=== PATIENT | male | born 1990 | race Caucasian/White ===

== ENCOUNTER 2024-02-23 05:06 | Emergency (ER) | payer OTHER, MEDICAID ==
[~2024-02-23] VITALS: Ht 182.9 cm; Wt 72.4 kg
[~2024-02-23 05:06] MED LIST: ANAPROX DS550 MG PO; BUSPIRONE HCL15 MG PO; CIPRO500 MG PO; GABAPENTIN100 MG PO; MIRTAZAPINE30 MG PO; ZOFRAN ODT8 MG PO
--- OUTSIDE RECORDS SUMMARY | 2024-02-23 05:09 | XMS ---
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 E.DMoshe VISIT COUNT (12 MO.) [address] TOTAL 6 NOTE: Visits indicate total known visits. ED/UCC VISIT TRACKING (12 MO.) 02/23/2024 05:[address] [facility] [address] TYPE: Emergency COMPLAINT: - RT ARM INJURY [facility] DIAGNOSES: - Medication Refill - WITHDRAWAL - WITHDRAWL 02/01/2024 23[facility] DIAGNOSES: - Medication Refill 01/31/2024 10[facility] DIAGNOSES: - "IS REALLY SICK" - Medication Refill 01/28/2024 [facility] DIAGNOSES: - Encounter for issue of repeat prescription - Withdrawal - WITHDRAWL 05/14/2023 21:26 [facility] TYPE: Emergency COMPLAINT: - MEDICAL SCREENING - Person with feared health complaint in whom no diagnosis is made DIAGNOSES: 1. Person with feared health complaint in whom no diagnosis is made INPATIENT VISIT TRACKING (12 MO.) No inpatient visits to display in this time frame [email or web address]
[2024-02-23] MEDS ORDERED: KETOROLAC TROMETHAMINE 30 MG/ML VIAL IV ONE (05:15)
[2024-02-23] MEDS ORDERED: METHADONE HCL 10 MG TAB PO ONE (05:15)
[2024-02-23] MEDS ORDERED: IBUPROFEN 800 MG TAB PO ONE (05:30)
[2024-02-23] MEDS ORDERED: METHADONE HCL10 MG PO (05:40)
[2024-02-23] MEDS ORDERED: LIDOCAINE HCL 2% 5 ML SDV ONE (06:18)
[2024-02-23] MEDS ORDERED: DEXAMETHASONE SOD PHOS 4 MG/ML VIAL ONE (06:18)
[2024-02-23] MEDS ORDERED: Ropivacaine HCl 0.5% 30 ML VIAL ONE (06:18)
[2024-02-23] MEDS ORDERED: IBU800 MG PO (07:21)
[2024-02-23 08:35] VITALS: BP 133/89
== END 2024-02-23 08:37 | disposition home or self-care (01) ==
LOC: ED 05:06
DX: S52.591A Other fractures of lower end of right radius, initial encounter for closed fracture (principal); S52.611A Displaced fracture of right ulna styloid process, initial encounter for closed fracture; F17.200 Nicotine dependence, unspecified, uncomplicated; Z88.8 Allergy status to other drugs, medicaments and biological substances; Z79.899 Other long term (current) drug therapy; W01.0XXA Fall on same level from slipping, tripping and stumbling without subsequent striking against object, initial encounter
CPT/HCPCS: 29125; 64417; 71045; 73030; 73090; 73110; 76942; 80053; 85025; 99283-25; A9270; J1100; J2003; J2795

== ENCOUNTER 2024-02-24 09:41 | Emergency (ER) | payer OTHER, MEDICAID ==
[~2024-02-24] VITALS: Ht 182.9 cm; Wt 70.0 kg
[~2024-02-24 09:41] MED LIST changes: +IBU800 MG PO; +METHADONE HCL10 MG PO
--- OUTSIDE RECORDS SUMMARY | 2024-02-24 09:48 | XMS ---
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 EWinifred VISIT COUNT (12 MO.) 4 [facility] [address] TOTAL 7 NOTE: Visits indicate total known visits. ED/UCC VISIT TRACKING (12 MO.) 02/24/2024 09:42 [facility] Macias TYPE: Emergency COMPLAINT: - RT ARM PAIN 02/23/2024 05:07 ANDRIY Macias TYPE: Emergency COMPLAINT: - RT ARM INJURY 02/02/2024 14:52 [facility] Jessica MORENO TYPE: Emergency DIAGNOSES: - Medication Refill - WITHDRAWAL - WITHDRAWL 02/01/2024 23:24 [facility] Ashli MORENO TYPE: Emergency DIAGNOSES: - Medication Refill 01/31/2024 10:46 [facility] Ashli MORENO TYPE: Emergency DIAGNOSES: - "IS REALLY SICK" - Medication Refill 01/28/2024 14:00 [facility] Ashli MORENO TYPE: Emergency DIAGNOSES: - Encounter for issue of repeat prescription - Withdrawal - WITHDRAWL 05/14/2023 21:26 [facility] TYPE: Emergency COMPLAINT: - MEDICAL SCREENING - Person with feared health complaint in whom no diagnosis is made DIAGNOSES: 1. Person with feared health complaint in whom no diagnosis is made INPATIENT VISIT TRACKING (12 MO.) No inpatient visits to display in this time frame [id number]
[2024-02-24] MEDS ORDERED: OXYCODONE/APAP 5/325 TAB PO ONE (10:45)
[2024-02-24] MEDS ORDERED: IBUPROFEN 600 MG TAB PO ONE (10:45)
[2024-02-24 11:47] VITALS: BP 123/73
== END 2024-02-24 11:47 | disposition home or self-care (01) ==
LOC: ED 09:41
DX: S62.101A Fracture of unspecified carpal bone, right wrist, initial encounter for closed fracture (principal); W18.30XA Fall on same level, unspecified, initial encounter; F17.200 Nicotine dependence, unspecified, uncomplicated; Z88.5 Allergy status to narcotic agent; Z79.899 Other long term (current) drug therapy
CPT/HCPCS: 99283; A9270

== ENCOUNTER 2024-03-07 08:37 | Emergency (ER) | payer OTHER, MEDICAID ==
[~2024-03-07] VITALS: Ht 182.9 cm; Wt 72.4 kg
--- OUTSIDE RECORDS SUMMARY | 2024-03-07 08:43 | XMS ---
PreManage Notification: JT MERCER Security Apn Events No recent Security Events currently on file CRITERIA MET - 6 ED Visits in 6 Months - [facility] - 2 Visits in 30 Days - [facility] - 3 Facilities in 90 Days CARE PROVIDERS TREY BECK Counselor: Mental Health Current PHONE: [phone] TOO ZAYAS [facility] Medicine: Adult Medicine Current PHONE: [phone] Marisol has no Care Guidelines for this patient. E.D. VISIT COUNT (12 MO.) 4 [facility] 3 [facility] 2 [facility] (Sendy Kaba) 1 [facility] TOTAL 10 NOTE: Visits indicate total known visits. ED/UCC VISIT TRACKING (12 MO.) 03/07/2024 08:37 [facility] [place] TYPE: Emergency COMPLAINT: - POST OP PROBLEM 03/04/2024 10:[address] [address] Lexi MORENO (Sendy Kaba) TYPE: Emergency DIAGNOSES: - Opioid dependence, uncomplicated - Unspecified fracture of the lower end of right radius, subsequent encounter for closed fracture with malunion - Followup Medical Problem - right hand injury 03/02/2024 01:03 [facility] Rafael Weston [place] ([place]) TYPE: Emergency DIAGNOSES: - Displaced fracture of head of right radius, initial encounter for closed fracture - Opioid dependence with unspecified opioid-induced disorder - multiple inj - Wrist Pain 02/24/2024 09:42 [facility] [place] TYPE: Emergency COMPLAINT: - RT ARM PAIN DIAGNOSES: - Allergy status to narcotic agent - Fall on same level, unspecified, initial encounter - Fracture of unspecified carpal bone, right wrist, initial encounter for closed fracture - Nicotine dependence, unspecified, uncomplicated - 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 02/23/2024 05:07 [facility] [place] TYPE: Emergency COMPLAINT: - RT ARM INJURY DIAGNOSES: - Allergy status to other drugs, medicaments and biological substances - Displaced fracture of right ulna styloid process, initial encounter for closed fracture - Fall on same level from slipping, tripping and stumbling without subsequent striking against object, initial encounter - Nicotine dependence, unspecified, uncomplicated - Other fractures of lower end of right radius, initial encounter for closed fracture - Other shelter (current) drug therapy - Pain in right wrist 02/02/2024 14:52 [facility] Ashli MORENO TYPE: Emergency DIAGNOSES: - Medication Refill - WITHDRAWAL - WITHDRAWL 02/01/2024 23:24 [facility] Ashli MORENO TYPE: Emergency DIAGNOSES: - Medication Refill 01/31/2024 10:46 [facility] Ashli MORENO TYPE: Emergency DIAGNOSES: - "IS REALLY SICK" - Medication Refill 01/28/2024 14:00 [facility] Ashli MORENO TYPE: Emergency DIAGNOSES: - Encounter for issue of repeat prescription - Withdrawal - WITHDRAWL 05/14/2023 21:26 [facility] TYPE: Emergency COMPLAINT: - MEDICAL SCREENING - Person with feared health complaint in whom no diagnosis is made DIAGNOSES: 1. Person with feared health complaint in whom no diagnosis is made INPATIENT VISIT TRACKING (12 MO.) 03/04/2024 10:16 [facility] Lexi MORENO ([place]) TYPE: Medical Surgical DIAGNOSES: - Encounter for therapeutic drug level monitoring - Opioid dependence, uncomplicated - Other shelter (current) drug therapy - Unspecified fracture of the lower end of right radius, subsequent encounter for closed fracture with malunion - Unspecified fracture of the lower end of right radius, subsequent encounter for closed fracture with routine healing [id number]
[2024-03-07] MEDS ORDERED: GABAPENTIN100 MG PO (08:54)
[2024-03-07] MEDS ORDERED: OXYCODONE HCL5 MG PO (08:54)
[2024-03-07] MEDS ORDERED: IBUPROFEN800 MG PO (08:54)
[2024-03-07] MEDS ORDERED: IBUPROFEN 800 MG TAB PO ONE (09:00)
[2024-03-07] MEDS ORDERED: OXYCODONE/APAP 5/325 TAB PO ONE (09:00)
[2024-03-07 09:15] VITALS: BP 147/97
== END 2024-03-07 09:18 | disposition home or self-care (01) ==
LOC: ED 08:37
DX: G89.18 Other acute postprocedural pain (principal); M25.531 Pain in right wrist; F17.200 Nicotine dependence, unspecified, uncomplicated; Z87.81 Personal history of (healed) traumatic fracture; Z88.8 Allergy status to other drugs, medicaments and biological substances; Z79.899 Other long term (current) drug therapy
CPT/HCPCS: 99283; A9270

== ENCOUNTER 2024-03-21 09:05 | Emergency (ER) | payer OTHER, MEDICAID ==
[~2024-03-21] VITALS: Ht 182.9 cm; Wt 75.0 kg
[~2024-03-21 09:05] MED LIST changes: +IBUPROFEN800 MG PO; +OXYCODONE HCL5 MG PO
--- OUTSIDE RECORDS SUMMARY | 2024-03-21 09:12 | XMS ---
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 E.D. VISIT COUNT (12 MO.) 4 [facility] 4 [facility] [facility] - [facility] TOTAL 11 NOTE: Visits indicate total known visits. ED/UCC VISIT TRACKING (12 MO.) 03/21/2024 09:05 [facility] [place] TYPE: Emergency COMPLAINT: - RT ARM INJURY 03/07/2024 08:37 [facility] [place] TYPE: Emergency COMPLAINT: - POST OP PROBLEM DIAGNOSES: - Allergy status to other drugs, medicaments and biological substances - Nicotine dependence, unspecified, uncomplicated - Other acute postprocedural pain - Other residential (current) drug therapy - Pain in right wrist - Personal history of (healed) traumatic fracture 03/04/2024 10:[facility]: Emergency DIAGNOSES: - Opioid dependence, uncomplicated - Unspecified fracture of the lower end of right radius, subsequent encounter for closed fracture with malunion - Followup Medical Problem - right hand injury 03/02/2024 01:03 [facility] Sendy MORENO ([place]) TYPE: Emergency DIAGNOSES: - Displaced fracture of head of right radius, initial encounter for closed fracture - Opioid dependence with unspecified opioid-induced disorder - multiple inj - Wrist Pain 02/24/2024 09:42 ANDRIY Macias TYPE: Emergency COMPLAINT: - RT ARM PAIN DIAGNOSES: - Allergy status to narcotic agent - Fall on same level, unspecified, initial encounter - Fracture of unspecified carpal bone, right wrist, initial encounter for closed fracture - Nicotine dependence, unspecified, uncomplicated - Other residential (current) drug therapy 02/23/2024 05:07 ANDRIY Macias TYPE: Emergency COMPLAINT: [...] initial encounter for closed fracture - Other residential (current) drug therapy - Pain in right wrist 02/02/2024 14:52 [facility] Ashli MORENO TYPE: Emergency DIAGNOSES: - Medication Refill - WITHDRAWAL - WITHDRAWL 02/01/2024 23[facility]24 [facility] DIAGNOSES: - Medication Refill 01/31/2024 10:46 [facility] DIAGNOSES: - "IS REALLY SICK" - Medication Refill 01/28/2024 14[facility]00 [facility] DIAGNOSES: - Encounter for issue of repeat prescription - Withdrawal - WITHDRAWL 05/14/2023 21:26 [facility] TYPE: Emergency COMPLAINT: - MEDICAL SCREENING - Person with feared health complaint in whom no diagnosis is made DIAGNOSES: 1. Person with feared health complaint in whom no diagnosis is made INPATIENT VISIT TRACKING (12 MO.) 03/04/2024 10:16 [place] TYPE: Medical Surgical DIAGNOSES: - Encounter for therapeutic drug level monitoring - Opioid dependence, uncomplicated - Other residential (current) drug therapy - Unspecified fracture of the lower end of right radius, subsequent encounter for closed fracture with malunion - Unspecified fracture of the lower end of right radius, subsequent encounter for closed fracture with routine healing [email or web address]
[2024-03-21 10:18] VITALS: BP 135/90
== END 2024-03-21 10:19 | disposition home or self-care (01) ==
LOC: ED 09:05
DX: S56.901A Unspecified injury of unspecified muscles, fascia and tendons at forearm level, right arm, initial encounter (principal); X58.XXXA Exposure to other specified factors, initial encounter; F17.200 Nicotine dependence, unspecified, uncomplicated; Z88.8 Allergy status to other drugs, medicaments and biological substances; Z79.899 Other long term (current) drug therapy
CPT/HCPCS: 73090; 99283

== ENCOUNTER 2024-04-09 11:52 | Emergency (ER) | payer MEDICAID ==
[~2024-04-09] VITALS: Ht 182.9 cm; Wt 70.8 kg
--- OUTSIDE RECORDS SUMMARY | 2024-04-09 11:59 | XMS ---
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 E.D. VISIT COUNT (12 MO.) 5 [facility] 4 [facility] 2 [facility] TOTAL 12 NOTE: Visits indicate total known visits. ED/UCC VISIT TRACKING (12 MO.) 04/09/2024 11:53 ANDRIY Macias TYPE: Emergency COMPLAINT: - ARM PAIN 03/21/2024 09:05 [facility] [place] TYPE: Emergency COMPLAINT: - RT ARM INJURY DIAGNOSES: - Allergy status to other drugs, medicaments and biological substances - Exposure to other specified factors, initial encounter - Nicotine dependence, unspecified, uncomplicated - Other manager long term care (current) drug therapy - Pain in right forearm - Unspecified injury of unspecified muscles, fascia and tendons at forearm level, right arm, initial encounter 03/07/2024 08:37 [facility] [place] TYPE: Emergency COMPLAINT: - POST OP PROBLEM DIAGNOSES: - Allergy status to other drugs, medicaments and biological substances - Nicotine dependence, unspecified, uncomplicated - Other acute postprocedural pain - Other 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 Sendy MORENO ([place]) TYPE: Emergency DIAGNOSES: - Opioid dependence, uncomplicated - Unspecified fracture of the lower end of right radius, subsequent encounter for closed fracture with malunion - Followup Medical Problem - right hand injury 03/02/2024 01:03 [facility] Sendy MORENO ([place]) TYPE: Emergency DIAGNOSES: - Displaced fracture of [...] - Nicotine dependence, unspecified, uncomplicated - Other correction (current) drug therapy 02/23/2024 05:07 ANDRIY Macias [...] initial encounter for closed fracture - Other correction (current) drug therapy - Pain in right wrist 02/02/2024 14:52 [facility] Jessica MORENO TYPE: Emergency DIAGNOSES: - Medication Refill - WITHDRAWAL - WITHDRAWL 02/01/2024 23:24 [facility] Ashli MORENO TYPE: Emergency DIAGNOSES: - Medication Refill 01/31/2024 10:46 [facility] DIAGNOSES: - "IS REALLY SICK" - Medication Refill 01/28/2024 14:00 [facility] Ashli MORENO TYPE: Emergency DIAGNOSES: - Encounter for issue of repeat prescription - Withdrawal - WITHDRAWL 05/14/2023 21:26 [facility] TYPE: Emergency COMPLAINT: - MEDICAL SCREENING - Person with feared health complaint in whom no diagnosis is made DIAGNOSES: 1. Person with feared health complaint in whom no diagnosis is made INPATIENT VISIT TRACKING (12 MO.) 03/04/2024 10:16 [facility] Sendy MORENO ([place]) TYPE: Medical Surgical DIAGNOSES: - Encounter for therapeutic drug level monitoring - Opioid dependence, uncomplicated - Other correction (current) drug therapy - Unspecified fracture of the lower end of right radius, subsequent encounter for closed fracture with malunion - Unspecified fracture of the lower end of right radius, subsequent encounter for closed fracture with routine healing [email or web address]
[2024-04-09] MEDS ORDERED: GABAPENTIN100 MG PO (12:25)
[2024-04-09] MEDS ORDERED: MIRTAZAPINE45 MG PO (12:26)
[2024-04-09] MEDS ORDERED: TRIMETHOPRIM/SULFAMETHOXAZOLE 1 EA TAB PO ONE (13:15)
[2024-04-09 14:06] VITALS: BP 155/89
== END 2024-04-09 14:06 | disposition other institution, planned readmission (95) ==
LOC: ED 11:52
DX: S69.91XA Unspecified injury of right wrist, hand and finger(s), initial encounter (principal); F22 Delusional disorders; F17.200 Nicotine dependence, unspecified, uncomplicated; Z98.890 Other specified postprocedural states; Z88.8 Allergy status to other drugs, medicaments and biological substances; Z79.899 Other long term (current) drug therapy; W19.XXXA Unspecified fall, initial encounter
CPT/HCPCS: 73110; 99283; A9270